=== PATIENT | female | born 1970 | race Caucasian/White ===

== ENCOUNTER → 2024-01-28 | Emergency (ER) | payer BC ==
[~2024-01-28] MED LIST: DIPHENHYDRAMINE 50 MG/ML VIAL ONE; KETOROLAC 30 MG/ML INJ ONE; METOCLOPRAMIDE 10 MG/2mL INJ ONE; MORPHINE 4 MG/ML SYR ONE; NA CHLORIDE 0.9% 50 ML ONE
--- NOTE | 2024-01-28 20:52 | RAD REPORT ---
EXAM DESCRIPTION: RAD - Chest Single View - 01/28/2024 8:42 pm CLINICAL HISTORY: CHEST PAIN COMPARISON: <Comparisons> FINDINGS: Lines: None. Lungs: No evidence of edema or pneumonia. Pleural: No significant pleural effusions or pneumothorax. Cardiac: The heart size is within normal limits. Mediastinum: Within normal limits. Bones: No acute fractures. Other: None IMPRESSION: No acute cardiopulmonary disease.
[2024-01-28 20:54] LABS: Absolute Basophils 0.1 K/uL (0-0.5); Absolute Eosinophils 0.2 K/uL (0-0.5); Absolute Lymphocytes (CBC) 3.4 K/uL (0.7-4.9); Eosinophils % 1.9 % (0-4.4); Lymphocytes % 31.2 % (15.3-44.8); MCV 86.9 fL (80-100); MPV 9.4 fL (7.6-11.3); Platelets 203 thou/uL (152-406); RBC Red Blood Cell Count 4.49 M/uL (3.86-4.86)
[2024-01-28 20:55] LABS: Protime INR 1.06
[2024-01-28 21:06] LABS: ALT/SGPT 27 U/L (13-56); AST/SGOT 12 U/L (15-37); Albumin 3.4 g/dL (3.4-5.0); Albumin/Globulin Ratio 0.9 (1.1-1.8); Alkaline Phosphatase 73 U/L (45-117); Anion Gap 8.5 mEq/L (5.0-15.0); BUN Blood Urea Nitrogen 19 mg/dL (7-18); Bicarbonate 28 mEq/L (21-32); Bilirubin Total 0.2 mg/dL (0.2-1.0); Globulin 3.6 g/dL (2.3-3.5); Glomerular Filtration Rate 69 ml/min (=/>90); Glucose Level 145 mg/dL (74-106); Magnesium 1.9 mg/dL (1.6-2.4); Potassium 3.5 mEq/L (3.5-5.1); Sodium Level 139 mEq/L (136-145); Troponin High Sensitivity 5.4 pg/mL (<58.9)
[2024-01-28 21:22] LABS: Bilirubin Direct < 0.1 mg/dL (0-0.2); Bilirubin Indirect, Calculated ND mg/dL (0.2-0.8)
--- NOTE | 2024-01-28 22:17 | RAD REPORT ---
EXAM DESCRIPTION: CT - Chest For Pe Angio - 01/28/2024 9:56 pm CLINICAL HISTORY: CHEST PAIN COMPARISON: No comparisons TECHNIQUE: Dynamically enhanced axial 3 mm thick images of the chest were obtained during administra tion of <100> mL Isovue 370 IV contrast. Coronal and oblique reconstruction images were generated and reviewed. Exam utilizes a protocol for optimal evaluation of pulmonary arterial tree. Maximum intensity projections 3D imaging was utilized All CT scans are performed using dose optimization technique as appropriate and may include automated exposure control or mA/KV adjustment according to patient size. FINDINGS: Chest Wall: No suspicious thyroid nodules or pathologic lymphadenopathy. Lungs: No acute abnormality. Pleura: No significant effusions or pneumothorax. Mediastinum/laura: No pathologic lymphadenopathy. Pulmonary arteries/Aorta: No filling defect identified. No aortic aneurysm. Heart: No significant pericardial effusion. Normal heart size. Coronary artery calcifications. Upper abdomen: No acute abnormality.Nodular liver contour. Bones: No acute abnormality. IMPRESSION: Negative for pulmonary embolism. No other acute findings identified. Multi-vessel abdi ry disease. Cirrhotic liver morphology.
--- NOTE | 2024-01-28 22:41 | RAD REPORT ---
EXAM DESCRIPTION: CT - Head Brain Wo Cont - 01/28/2024 10:33 pm CLINICAL HISTORY: headache, blurred vision COMPARISON: No comparisons TECHNIQUE: All CT scans are performed using dose optimization technique as appropriate and may inclu de automated exposure control or mA/KV adjustment according to patient size. FINDINGS: No intracranial hemorrhage, hydrocephalus or extra-axial fluid collection.No areas of brai n edema or evidence of midline shift. Some contrast remains within the vascular system .. The paranasal sinuses and mastoids are clear. The calvarium is intact. IMPRESSION: No acute intracranial abnormality.
--- NOTE | 2024-01-29 01:28 | ER ---
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 Coronavirus screen: Client denies travel out of the [place] in the last 14 days. Ebola Screen: No symptoms or risks identified at this time. Initial Sepsis Screen: Does the patient meet any 2 criteria? No. Patient's initial sepsis screen is negative. Does the patient have a suspected source of infection? No. Patient's initial sepsis screen is negative. Risk Assessment: Do you want to hurt yourself or someone else? Patient reports no desire to harm self or others. Onset of symptoms was January 28, 2024 at 19:45. 20:25 Method Of Arrival: EMS: [facility] km8 20:25 Acuity: MAGNOLIA 2 km8 20:25 Care prior to arrival: Medication(s) given: ASA, 81 mg, x 4. km8 Triage Assessment: 20:28 General: Appears in no apparent distress. uncomfortable, Behavior is calm, cooperative, km8 appropriate for age. Pain: Complains of pain in back and chest and headache. EENT: No signs and/or symptoms were reported regarding the EENT system. Neuro: Level of Consciousness is awake, alert, obeys commands, Oriented to person, place, time, situation, Reports headache. Cardiovascular: Reports chest pain, shortness of breath, Patient's skin is warm and dry. Rhythm is sinus rhythm Chest pain is described as Pain is 7 out of 10 on a pain scale. quality is sharp, is located in anterior chest wall radiates back began 1 hour prior to arrival episodes are continuous is aggravated by activity, breathing. Respiratory: Reports shortness of breath cough that is pain with cough pain with respiration Airway is patent Respiratory effort is even, labored, Respiratory pattern is regular, symmetrical. GI: Reports nausea. : No signs and/or symptoms were reported regarding the genitourinary system. Derm: No signs and/or symptoms reported regarding the dermatologic system. Skin is intact, is healthy with good turgor, Skin is dry, Skin is pink, warm \T\ dry. normal, Skin temperature is warm. Musculoskeletal: No signs and/or symptoms reported regarding the musculoskeletal system. Range of motion: intact in all extremities. 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, Not km Historical: - Allergies: 20:28 No Known Allergies; 8 - Home Meds: 22:23 Potassium Chloride 99 mg Oral every other night [Active]; Vitamin D3 50 mcg (2,000 km8 unit) oral capsule daily [Active]; Laxative Pills oral 5 mg every other night [Active]; levothyroxine 112 mcg capsule [Active]; lisinopril 20 mg Oral tablet daily [Active]; metoprolol tartrate 50 mg Oral tablet 2 times per day [Active]; aspirin 81 mg Oral capsule [Active]; clopidogrel 75 mg oral tablet daily [Active]; metformin 500 mg Oral tablet 2 times per day [Active]; hydrochlorothiazide 25 mg Oral tablet daily [Active]; atorvastatin 40 mg oral tablet daily [Active]; naproxen 500 mg Oral tablet 2 times per day [Active]; acetaminophen-codeine 300-30 mg Oral tablet as needed [Active]; Advair Diskus 250-50 mcg/dose Inhl Blister, With Inhalation Device 2 times per day [Active]; - PMHx: 20:28 grave's disease; Diabetes mellitus; Hypertensive disorder; Myocardial infarction; 8 - PSHx: 20:28 Thyroidectomy; back surgery x2; D\T\C; km8 - Immunization history:: Client reports having NOT received the Covid vaccine. Flu vaccine is not up to date. - Social history:: Smoking status: Patient reports the use of cigarette tobacco products, smokes one-half pack cigarettes per day, Patient uses alcohol, occasionally. Patient/guardian denies using street drugs. Screenin:32 [facility] ED Fall Risk Assessment (Adult) History of falling in the last 3 months, km8 including since admission No falls in past 3 months (0 pts) Confusion or Disorientation No (0 pts) Intoxicated or Sedated No (0 pts) Impaired Gait No (0 pts) Mobility Assist Device Used No (0 pt) Altered Elimination No (0 pt) Score/Fall Risk Level 0 - 2 = Low Risk Oriented to surroundings, Maintained a safe environment, Educated pt \T\ family on fall prevention, incl call for assistance when getting out of bed, Assessed \T\ reinforced patient's understanding of fall precautions. Abuse screen: Denies threats or abuse. Denies injuries from another. Nutritional screening: No deficits noted. Tuberculosis screening: No symptoms or risk factors identified. Assessment: 20:32 Reassessment: see triage notes/assessment. [facility] 21:39 Reassessment: Patient appears in no apparent distress at this time. No changes from [facility] previously documented assessment. Patient and/or family updated on plan of care and expected duration. Pain level reassessed. Patient is alert, oriented x 3, equal unlabored respirations, skin warm/dry/pink. Patient states symptoms have improved. Pain: Complains of pain in head Pain currently is 5 out of 10 on a pain scale. 23:19 Reassessment: Patient appears in no apparent distress at this time. Patient and/or [facility] family updated on plan of care and expected duration. Pain level reassessed. Patient is alert, oriented x 3, equal unlabored respirations, skin warm/dry/pink. Patient states symptoms have improved. 01/28 00:00 Reassessment: Patient appears in no apparent distress at this time. Patient and/or [facility] family updated on plan of care and expected duration. Pain level reassessed. Patient is alert, oriented x 3, equal unlabored respirations, skin warm/dry/pink. Patient states feeling better. 01:04 Reassessment: No changes from previously documented assessment. tm6 Vital Signs: 01/27 20:25 BP 114 / 69; Pulse 69; Resp 20; Temp 98.6(O); Pulse Ox 98% on R/A; Weight 104.33 kg km8 (R); Height 5 ft. 8 in. (R); Pain 7/10; 20:30 BP 118 / 77; Pulse 67; Resp 19; Pulse Ox 100% on R/A; km8 21:00 BP 101 / 78; Pulse 72; Resp 14; Pulse Ox 98% on R/A; km8 21:30 BP 110 / 68; Pulse 60; Resp 14; Pulse Ox 96% on R/A; km8 22:00 BP 112 / 89; Pulse 65; Resp 16; Pulse Ox 99% on R/A; km8 23:10 BP 114 / 66; Pulse 60; Resp 16; Pulse Ox 95% on R/A; km8 23:45 BP 99 / 65; Pulse 62; Resp 18; Pulse Ox 97% on R/A; km8 01/28 01:04 BP 117 / 76; Pulse 65; Resp 12; Pulse Ox 93% on R/A; tm6 01:27 BP 108 / 68; Pulse 58; Resp 16; Pulse Ox 97% on R/A; km8 01/27 20:25 Body Mass Index 34.97 (104.33 kg, 172.72 cm) km8 01/27 20:25 Pain Scale: Adult km8 Julian Coma Score: 01/27 20:32 Eye Response: spontaneous(4). Motor Response: obeys commands(6). Verbal Response: km8 oriented(5). Total: 15. ED Course: 20:19 Patient arrived in ED. rv1 20:22 Yaniv Thrasher DO is Attending Physician. ms3 20:23 Najma Grady RN is Primary Nurse. km8 20:27 Triage completed. km8 20:28 Arm band placed on right wrist. km8 20:32 Patient has correct armband on for positive identification. Placed in gown. Bed in low km8 position. Call light in reach. Side rails up X2. manager monitoring on. Pulse ox on. NIBP on. Warm blanket given. 20:32 Patient maintains SpO2 saturation greater than 95% on room air. km8 20:33 EKG done, by ED staff, reviewed by Yaniv Thrasher DO. km8 20:40 Initial lab(s) drawn, by ED staff, sent to lab. Inserted saline lock: 22 gauge in right km8 forearm, using aseptic technique. Blood collected. 20:42 CBC with Diff Sent. km8 20:42 LFT's Sent. km8 20:42 Magnesium Sent. km8 20:42 PT-INR Sent. km8 20:42 Troponin HS Sent. km8 21:00 Pillow given. oe 21:58 CT Chest For PE Angio In Process Unspecified. EDMS 21:59 Patient moved back from CT. km8 22:35 CT Head Brain wo Cont In Process Unspecified. EDMS 23:57 Repeat lab(s) drawn. by me, sent to lab. km8 23:59 No provider procedures requiring assistance completed. km8 01/28 00:53 Diet: Patient given water. oe :27 Johnny Villalpando MD is Referral Physician. ms3 :27 Provided Education on: d/c teaching. km8 :27 IV discontinued, intact, bleeding controlled, No redness/swelling at site. Pressure km8 dressing applied. Administered Medications: 01/27 21:13 Drug: morphine IVP or IV 4 mg IVP once over 4 mins Route: IVP; Infused Over: 4 mins; km8 Site: right forearm; 21:45 Follow up: Response: No adverse reaction; Pain is decreased 8 22:20 Drug: Ketorolac IVP 10 mg 10 mg IVP once Route: IVP; Site: right forearm; km8 01/28 00:16 Follow up: Response: No adverse reaction; Pain is decreased 8 01/27 22:20 Drug: metoCLOPramide IVP 10 mg IVP once; over 1 to 2 minutes Route: IVP; Site: right [facility] forearm; 01/28 00:16 Follow up: Response: No adverse reaction; Pain is decreased 8 01/27 22:20 Drug: diphenhydrAMINE IVP 25 mg IVP once Route: IVP; Site: right forearm; km8 01/28 00:17 Follow up: Response: No adverse reaction; Pain is decreased km8 00:21 Not Given (given by EMS CURTAIN MENDER): aspirinchewable tablet 324 mg PO once; 81 mg tablets x 4 8 Medication: 00:00 VIS not applicable for this client. 8 Outcome: :27 Discharge ordered by . ms3 01:32 Discharged to home ambulatory, with significant other, km8 :32 Condition: good 01:32 Discharge instructions given to patient, Instructed on discharge instructions, follow up and referral plans. Demonstrated understanding of instructions, follow-up care, :32 Patient left the ED. km8 Signatures: Dispatcher [employer] EDMS Phu aGmez Marcus, DO DO ms3 MéndezMarybeth rv1 Najma Grady, RN RN km8 Guillermo Beckman RN RN tm6 Corrections: (The following items were deleted from the chart) 01/27 20:36 20:28 Cardiovascular: Reports chest pain, shortness of breath, Patient's skin is warm km8 and dry. Rhythm is sinus rhythm Chest pain is described as km8
--- NOTE | 2024-01-29 01:29 | EDPHYS ---
Physician Documentation [facility] Name: Lilian Trejo Age: 53 yrs Sex: Female : 1970 Arrival Date: 01/28/2024 Time: 20:14 Bed 3 Private MD: ED Physician Yaniv Thrasher HPI: 01/27 21:03 This 53 yrs old Female presents to ER via EMS with complaints of Chest Pain. ms3 21:03 53-year-old female past medical history of Graves' disease, diabetes, hypertension, ms3 myocardial infarction presents to the emergency department for chest pain that began approximately 1 hour prior to arrival. Patient states she ate dinner, cough and experienced left shoulder pain and shortness of breath. Patient states her chest pain has been intermittent. Patient endorses nausea. Patient denies vomiting. Patient states the discomfort is an 8/10 and worse with breathing.. 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, Not km8 Historical: - Allergies: 20:28 No Known Allergies; km8 - Home Meds: 22:23 Potassium Chloride 99 mg Oral every other night [Active]; Vitamin D3 50 mcg (2,000 km8 unit) oral capsule daily [Active]; Laxative Pills oral 5 mg every other night [Active]; levothyroxine 112 mcg capsule [Active]; lisinopril 20 mg Oral tablet daily [Active]; metoprolol tartrate 50 mg Oral tablet 2 times per day [Active]; aspirin 81 mg Oral capsule [Active]; clopidogrel 75 mg oral tablet daily [Active]; metformin 500 mg Oral tablet 2 times per day [Active]; hydrochlorothiazide 25 mg Oral tablet daily [Active]; atorvastatin 40 mg oral tablet daily [Active]; naproxen 500 mg Oral tablet 2 times per day [Active]; acetaminophen-codeine 300-30 mg Oral tablet as needed [Active]; Advair Diskus 250-50 mcg/dose Inhl Blister, With Inhalation Device 2 times per day [Active]; - PMHx: 20:28 grave's disease; Diabetes mellitus; Hypertensive disorder; Myocardial infarction; km8 - PSHx: 20:28 Thyroidectomy; back surgery x2; D\T\C; km8 - Immunization history:: Client reports having NOT received the Covid vaccine. Flu vaccine is not up to date. - Social history:: Smoking status: Patient reports the use of cigarette tobacco products, smokes one-half pack cigarettes per day, Patient uses alcohol, occasionally. Patient/guardian denies using street drugs. ROS: 21:03 Constitutional: Negative for fever, and chills. Neck: Negative for injury, pain, and ms3 swelling, 21:03 MS/Extremity: Negative for injury and deformity, Skin: Negative for injury, rash, and discoloration, 21:03 Cardiovascular: Positive for chest pain, 21:03 Respiratory: Positive for shortness of breath, Exam: 21:03 Constitutional: This is a well developed, well nourished patient who is awake, alert, ms3 and in no acute distress. Head/Face: Normocephalic, atraumatic. Chest/axilla: Normal chest wall appearance and motion. Nontender with no deformity. Cardiovascular: Regular rate and rhythm with a normal S1 and S2. No gallops, murmurs, or rubs. Normal PMI, no JVD. No pulse deficits. Respiratory: Lungs have equal breath sounds bilaterally, clear to auscultation and percussion. No rales, rhonchi or wheezes noted. No increased work of breathing, no retractions or nasal flaring. Abdomen/GI: Soft, non-tender, with normal bowel sounds. No distension or tympany. No guarding or rebound. No evidence of tenderness throughout. Skin: Warm, dry with normal turgor. Normal color with no rashes, no lesions, and no evidence of cellulitis. MS/ Extremity: Pulses equal, no cyanosis. Neurovascular intact. Full, normal range of motion. Neuro: Awake and alert, GCS 15, oriented to person, place, time, and situation. Cranial nerves II-XII grossly intact. Motor strength 5/5 in all extremities. Sensory grossly intact. Cerebellar exam normal. Normal gait. 21:03 ECG was reviewed by the Attending Physician. ms3 Vital Signs: 20:25 BP 114 / 69; Pulse 69; Resp 20; Temp 98.6(O); Pulse Ox 98% on R/A; Weight 104.33 kg km8 (R); Height 5 ft. 8 in. (R); Pain 7/10; 20:30 BP 118 / 77; Pulse 67; Resp 19; Pulse Ox 100% on R/A; km8 21:00 BP 101 / 78; Pulse 72; Resp 14; Pulse Ox 98% on R/A; km8 21:30 BP 110 / 68; Pulse 60; Resp 14; Pulse Ox 96% on R/A; km8 22:00 BP 112 / 89; Pulse 65; Resp 16; Pulse Ox 99% on R/A; km8 23:10 BP 114 / 66; Pulse 60; Resp 16; Pulse Ox 95% on R/A; km8 23:45 BP 99 / 65; Pulse 62; Resp 18; Pulse Ox 97% on R/A; km8 01/28 01:04 BP 117 / 76; Pulse 65; Resp 12; Pulse Ox 93% on R/A; tm6 01:27 BP 108 / 68; Pulse 58; Resp 16; Pulse Ox 97% on R/A; km8 01/27 20:25 Body Mass Index 34.97 (104.33 kg, 172.72 cm) [facility] 01/27 20:25 Pain Scale: Adult km8 Julian Coma Score: 01/27 20:32 Eye Response: spontaneous(4). Motor Response: obeys commands(6). Verbal Response: km oriented(5). Total: 15. MDM: 20:44 Patient medically screened. ms3 21:03 Differential diagnosis: abnormal EKG, acute myocardial infarction, coronary artery ms3 disease chest wall pain, pulmonary embolus. 01/28 00:10 HEART Score: History: Slightly Suspicious (0), ECG: Normal (0), Age: > 45 and < 65 ms3 years (1), Risk Factors: > or = 3 Risk factors for atherosclerotic disease (2), [Hypertension] [DM] [Active Smoker] Troponin: < or = 1 x Normal Limit (0), Total Score = 3. ED course: Discussed observation with patient and patient declines. Will obtain second troponin.. 01:28 The patient was not given aspirin in the Emergency Department. Administered by EMS. ms3 Data reviewed: vital signs, nurses notes, lab test result(s), EKG, radiologic studies, and as a result, I will discharge patient. Consideration of Admission/Observation Escalation of care including admission/observation considered. Discussed observation with the patient and patient declines. Patient heart score 3. Repeat troponin remains negative. I considered the following discharge prescriptions or medication management in the emergency department Medications were administered in the Emergency Department. See MAR. Historians other than the Patient: EMS: [facility]. Counseling: I had a detailed discussion with the patient and/or guardian regarding the historical points, exam findings, and any diagnostic results supporting the discharge/admit diagnosis, lab results, radiology results, the need for outpatient follow up, to return to the emergency department if symptoms worsen or persist or if there are any questions or concerns that arise at home. Special discussion: I discussed with the patient/guardian in detail that at this point there is no indication for admission to the hospital. It is understood, however, that if the symptoms persist or worsen the patient needs to return immediately for re-evaluation. ED course: Discussed repeat troponin, labs, chest x-ray, EKG with patient. Patient to follow-up with Dr. Villalpando in 1 to 2 days. All questions were answered. Return precautions discussed include worsening symptoms, or any other concerns. On reevaluation patient symptoms have resolved, patient is alert and oriented x 4, no apparent distress, nontoxic-appearing, ambulatory emergency room, speaking full sentences.. 01/27 20:31 Order name: Basic Metabolic Panel 3 01/27 20:31 Order name: CBC with Diff 3 01/27 20:31 Order name: LFT's ms3 01/27 20:31 Order name: Magnesium ms3 01/27 20:31 Order name: PT-INR ms3 01/27 20:31 Order name: Troponin HS ms3 01/27 20:55 Order name: Protime (+INR); Complete Time: 21:19 EDMS 01/27 21:03 Order name: CBC with Automated Diff; Complete Time: 21:19 EDMS 01/27 21:23 Order name: Basic Metabolic Panel; Complete Time: 21:27 EDMS 01/27 21:23 Order name: Liver (Hepatic) Function; Complete Time: 21:27 EDMS 01/27 21:23 Order name: Troponin High Sensitivity; Complete Time: 21:27 EDMS 01/27 21:23 Order name: Magnesium; Complete Time: 21:27 EDMS 01/27 23:54 Order name: Troponin High Sensitivity; Complete Time: 00:42 3 01/27 20:31 Order name: XRAY Chest (1 view) 01/27 20:31 Order name: CT Chest For PE Angio; Complete Time: 00:42 ms3 01/27 20:53 Order name: RAD; Complete Time: 21:19 EDMS 01/27 22:07 Order name: CT Head Brain wo Cont; Complete Time: 00:42 ms3 01/27 20:31 Order name: EKG; Complete Time: 20:32 ms3 01/27 20:31 Order name: Cardiac monitoring; Complete Time: 20:31 ms3 01/27 20:31 Order name: EKG - Nurse/Tech; Complete Time: 20:31 ms3 01/27 20:31 Order name: IV Saline Lock; Complete Time: 20:42 ms3 01/27 20:31 Order name: Labs collected and sent; Complete Time: 20:42 ms3 01/27 20:31 Order name: O2 Per Protocol; Complete Time: 20:33 ms3 01/27 20:31 Order name: O2 Sat Monitoring; Complete Time: 20:33 ms3 EC/09 21:03 Rate is 68 beats/min. Rhythm is regular. QRS [place] is Normal. TN interval is normal. QRS ms3 interval is normal. Clinical impression: Normal ECG. Interpreted by me. Reviewed by me. Administered Medications: 21:13 Drug: morphine IVP or IV 4 mg IVP once over 4 mins Route: IVP; Infused Over: 4 mins; km8 Site: right forearm; 21:45 Follow up: Response: No adverse reaction; Pain is decreased 8 22:20 Drug: Ketorolac IVP 10 mg 10 mg IVP once Route: IVP; Site: right forearm; km8 01/28 00:16 Follow up: Response: No adverse reaction; Pain is decreased 8 01/27 22:20 Drug: metoCLOPramide IVP 10 mg IVP once; over 1 to 2 minutes Route: IVP; Site: right km8 forearm; 01/28 00:16 Follow up: Response: No adverse reaction; Pain is decreased 8 01/27 22:20 Drug: diphenhydrAMINE IVP 25 mg IVP once Route: IVP; Site: right forearm; km8 01/28 00:17 Follow up: Response: No adverse reaction; Pain is decreased 8 00:21 Not Given (given by EMS TRANSFER CLERK): aspirinchewable tablet 324 mg PO once; 81 mg tablets x 4 km8 Disposition Summary: 03/10/24 01:27 Discharge Ordered Notes: Location: Home ms3 Condition: Stable ms3 Diagnosis - Chest pain, unspecified ms3 - Chest pain on breathing ms3 - Headache ms3 Followup: ms3 - With: Johnny Villalpando MD - When: 1 - 2 days - Reason: Recheck today's complaints Discharge Instructions: - Discharge Summary Sheet ms3 - Nonspecific Chest Pain, Adult ms3 - General Headache Without Cause ms3 Forms: - Medication Reconciliation Form ms3 - Thank You Letter ms3 - Antibiotic Education ms3 - Prescription Opioid Use ms3 - Patient Portal Instructions ms3 - Leadership Thank You Letter ms3 Signatures: Dispatcher [employer] EDYaniv Harvey DO DO ms3 Najma Grady RN RN km8
[2024-01-29 01:43] VITALS: TEMP 98.6
[2024-01-29 03:21] VITALS: BP 108/68; O2SAT 97
== END ==
LOC: ER 20:14
DX: R07.1 Chest pain on breathing (principal); R51.9 Headache, unspecified; I10 Essential (primary) hypertension; E11.9 Type 2 diabetes mellitus without complications; Z79.82 Long term (current) use of aspirin; F17.210 Nicotine dependence, cigarettes, uncomplicated; Z28.310 Unvaccinated for COVID-19
CPT/HCPCS: 85025; 80048; 36415; 83735; 85610; 80076; 84484; 70450; 71275; 71045; Q9967; J2765; J1200; 96374; 96375; 99285